=== PATIENT | female | born 1995 | race African-American/Black ===

== ENCOUNTER 2017-01-20 17:46 | Emergency (ER) | payer SELFPAY ==
[~2017-01-20] VITALS: Ht 162.6 cm; Wt 77.1 kg
[2017-01-20 18:10] VITALS: BP 143/82
[2017-01-20] MEDS ORDERED: FLUT9.9S NS (19:52)
--- NOTE | 2017-01-20 19:52 | PHYS DOC ---
Past Medical History Past Medical History: No Pertinent History Past Surgical History: No Surgical History Smoking: Less than 1pk/day Additional Information: 3 TO 4 CIGARETTES A DAY Alcohol Use: None Drug Use: None Adult General Chief Complaint Chief Complaint: SORE THROAT HPI HPI Patient is a 21 year old female who presents with sore throat for the last 3-4 days. She also reports nasal congestion and left ear pain. She denies fever, cough, shortness breath, vomiting, or diarrhea. She denies any known sick contacts. She does not have a PCP. Review of Systems Review of Systems Constitutional: Denies fever or chills. [] Eyes: Denies change in visual acuity, redness, or eye pain. [] HENT: Port sore throat, nasal congestion, and left ear pain. Respiratory: Denies cough or shortness of breath. [] GI: Denies abdominal pain, nausea, vomiting, bloody stools or diarrhea. [] Musculoskeletal: Denies back pain or joint pain. [] Integument: Denies rash or skin lesions. [] Neurologic: Denies headache, focal weakness or sensory changes. [] All systems reviewed and negative unless otherwise stated in the HPI. Allergies Allergies Allergies Coded Allergies Type Severity Reaction Last Updated Verified No Known Drug Allergies 01/20/17 No Physical Exam Physical Exam Constitutional: Well developed, well nourished, no acute distress, non-toxic appearance. [] HENT: Normocephalic, atraumatic, bilateral external ears normal, oropharynx moist, no oral exudates, nose normal. Bilateral TMs without erythema or bulging. There is minimal posterior pharyngeal erythema without tonsillar edema or exudates. Bilateral nasal turbinates are swollen and erythematous with purulent drainage. Eyes: PERRLA, EOMI, conjunctiva normal, no discharge. [] Neck: Normal range of motion, no tenderness, supple, no stridor. [] Cardiovascular: Heart rate regular rhythm, no murmur [] Lungs & Thorax: Bilateral breath sounds clear to auscultation without wheezes, rales, or rhonchi. Skin: Warm, dry, no erythema, no rash. [] Neurologic: Alert and oriented X 3, normal motor function, normal sensory function, no focal deficits noted. [] Psychologic: Affect normal, judgement normal, mood normal. [] Current Patient Data Vital Signs Vital Signs Date Time Temp Pulse Resp B/P Pulse Ox O2 Delivery O2 Flow Rate FiO2 01/20/17 18:10 98.8 88 12 143/82 100 Room Air 98.8 Lab Values Rapid strep negative EKG EKG [] Radiology/Procedures Radiology/Procedures [] Course & Med Decision Making Course & Med Decision Making Pertinent Labs and Imaging studies reviewed. (See chart for details) [] Dragon Disclaimer Dragon Disclaimer This electronic medical record was generated, in whole or in part, using a voice recognition dictation system. Departure Departure Impression: Primary Impression: URI (upper respiratory infection) Disposition: HOME, SELF-CARE Condition: STABLE Referrals: NO PCP (PCP) Patient Instructions: Upper Respiratory Infection, Adult, [id number] Additional Instructions: Your strep test was negative. Please use the prescribed nasal spray daily to help decrease swelling in the nose and relieve your ear pain. Please follow-up with your primary care doctor within the next week. Return to emergency department if any new or concerning symptoms. Scripts Fluticasone Propionate (Flonase Allergy Relief)9.9 Ml [place].susp2 Sprays NS DAILY #1 BOTTLE Prov:ANEESH MAGAÑA 01/20/17 Problem Qualifiers Primary Impression: URI (upper respiratory infection) URI type: unspecified viral URI Qualified Code: J06.9 - Acute upper respiratory infection, unspecified ANEESH MAGAÑA Jan 20, 2017 19:52
[2017-01-21 07:26] LABS: NEGATIVE OBC STREP NEG; POSITIVE OBC STREP POS
--- NOTE | 2017-01-25 15:26 | VNOTE ---
CALL BACK NOTE CALL BACK Microbiology 01/20/17 Throat Culture - Final, Complete 01/20/17 - Final, Complete The patient's throat culture returned positive for beta-hemolytic strep group A. I called to inform her of the results. There was no answer. I left a voicemail for her to return the phone call. ANEESH MAGAÑA Jan 25, 2017 15:26
--- NOTE | 2017-01-27 07:26 | VNOTE ---
CALL BACK NOTE CALL BACK Microbiology 01/20/17 Throat Culture - Final, Complete 01/20/17 - Final, Complete Patient has a positive strep culture. Called the number provided and spoke to a man who refused to identify himself but he stated he knows patient and will pass message to her, this is our second call to patient and hence we will give the nurse manager room paperwork to mail to patient. ALLYSON MONTANO APRN Jan 27, 2017 07:26
== END 2017-01-20 19:56 | disposition home or self-care (01) ==
LOC: ER 17:46
DX: J06.9 Acute upper respiratory infection, unspecified (principal); H92.02 Otalgia, left ear; F17.210 Nicotine dependence, cigarettes, uncomplicated
CPT/HCPCS: 87070; 87880; 99284